=== PATIENT | female | born 1940 ===

== ENCOUNTER 2019-03-07 07:02 | Day surgery (SDC) | payer MEDICARE ==
[~2019-03-07 07:02] MED LIST: Acetaminophen TAB* 325 MG PO PRN; Buffered Lidocaine 1% SYRIN* 1 ML/SYRINGE INTRADERM ONE
[2019-03-07] MEDS ORDERED: Midazolam* 1 MG/ML 2 ML VIAL (2 MG) ONE (07:55)
[2019-03-07] MEDS ORDERED: Neomycin/Polymy/Dex OPHTH.OIN* 3.5 GM ONE (08:30)
[2019-03-07] MEDS ORDERED: Ketorolac 0.5% OPHTH (NF) 0.5 % 5 ML BTL ONE (08:30)
[2019-03-07] MEDS ORDERED: Tetracaine 0.5% OPTH.SOL 4 ML* 1 DROP BTL ONE (08:30)
[2019-03-07] MEDS ORDERED: Tropicamide 1% OPTH.SOL* BTL ONE (08:30)
[2019-03-07] MEDS ORDERED: Lidocaine 1% MPF ** 5 ML VIAL ONE (08:30)
[2019-03-07] MEDS ORDERED: Cyclopentolate 1% OPTH.SOL* 2 ML BTL ONE (08:30)
[2019-03-07] MEDS ORDERED: Phenylephrine OPHTH SOL 2.5%* 2 ML ONE (08:30)
[2019-03-07 09:26] VITALS: BP 130/54
--- NOTE | 2019-03-07 10:25 | OP ---
DATE OF OPERATION: 03/07/[address] [facility] DATE OF : 38 SURGEON: Frandy Bedolla MD. SENIOR C SOFTWARE ENGINEER: None. ANESTHESIA: Topical with intravenous sedation. PRE-OP DIAGNOSIS: Cataract with astigmatism, right eye. POST-OP DIAGNOSIS: Cataract with astigmatism, right eye. OPERATIVE PROCEDURE: Phacoemulsification and cataract extraction with posterior chamber toric intraocular lens implant, right eye. COMPLICATIONS: None. BLOOD LOSS: None. DESCRIPTION OF PROCEDURE: The patient was brought to the operating room and received intravenous sedation. A drop of tetracaine was placed in her right eye. The patient was prepped and draped in the usual sterile fashion for ophthalmic surgery and attention was directed to the right eye, where a speculum was placed. A paracentesis was created at the 11 o'clock position and 0.1 cc of 1% preservative- free lidocaine was injected into the anterior chamber followed by DisCoVisc. The eye was digitally stabilized while a 2.75 mm keratome was used to create a triplanar clear corneal incision at the 9 o'clock position. A continuous curvilinear capsulorrhexis was created with a cystotome and Utrata forceps. BSS on a cannula was used to hydrodissect the lens and the capsule. Phacoemulsification was performed in a [id number]-[id number] technique to create 4 fragments, which were removed. Residual cortical material was removed with irrigation and aspiration. The capsular bag was polished. The capsular bag was inflated with Provisc. The surface of the eye was lubricated and the intraocular pressure was checked. The ORA device was employed and an [id number] diopter lens was chosen. This lens was folded and inserted into the capsular bag. It was dialed to the 37-degree axis as per the ORA radical. The lens was stabilized using a Sinskey hook for the paracentesis while irrigation and aspiration were performed to remove viscoelastic from the eye. The Sinskey hook was removed. BSS on a cannula was used to hydrate the corneal stroma and seal the wound. At the end of the case, the pupil was round. The lens was centered, stable, and axially aligned. The eye pressure was normal. The wound was watertight. The speculum was removed and topical Maxitrol ointment was placed on the surface of the eye. The eye was closed, patched, and shielded, and the patient was sent to the recovery room in stable condition with postoperative instructions and followup appointment given. [id number]/[facility] #: [id number] CAROLINE
== END 2019-03-07 09:55 | disposition home or self-care (01) ==
LOC: OREAST 07:02
PROVIDERS: ATTEND Ophthalmology
DX: H25.11 Age-related nuclear cataract, right eye (principal); H52.201 Unspecified astigmatism, right eye
CPT/HCPCS: A9270-GY; J2250; V2787